=== PATIENT | female | born 1970 | race Caucasian/White ===

== ENCOUNTER 2017-06-03 09:44 | Emergency (ER) | payer SELFPAY ==
[~2017-06-03] VITALS: Ht 157.5 cm; Wt 63.5 kg
[~2017-06-03 09:44] MED LIST: CIPR500T4 PO; ESCI10TA PO; QUET100 PO; RISP.5 PO
[2017-06-03 09:45] VITALS: BP 117/93; PULSE 108; RESP 15; TEMP 98; O2SAT 100
--- NOTE | 2017-06-03 10:36 | PD ---
HPI Chief Complaint: Psychiatric Symptoms Time Seen by Provider: 10:06 Travel History International Travel<30 days: No Contact w/Intl Traveler<30days: No Traveled to known affect area: No History of Present Illness HPI Patient is a 46-year-old female who comes in because she would like to see psychiatry. She says she has been hearing voices and they're getting louder. She says the voices are derogatory mean. She denies any suicidal or homicidal ideation. She denies any medical complaints at this time. She is not having any pain, shortness of breath, fevers, nausea or vomiting. She denies drug or alcohol use. She was here a year ago for the same thing and was put on medications, however she has stopped taking them because she felt they were not helping. [facility] Past Medical History Anxiety: Yes Depression: Yes Cancer: No Cardiovascular Problems: No (Patient denied, but reported history of ER visits as described below) Diabetes: No Diminished Hearing: No Endocrine: No Genitourinary: No Headaches: No Immune Disorder: No Musculoskeletal: No Neurologic: No Reproductive: No Respiratory: No Seizures: No ?: Not LMP: 05/09/17 Menopausal: Yes : 2 Para: 1 : 1 Social History Alcohol Use: No Tobacco Use: No Allergies-Medications (Allergen,Severity, Reaction): Coded Allergies: metronidazole (Unverified Allergy, Severe, 06/03/17) Reported Meds & Prescriptions Reported Meds & Active Scripts Active Reported Risperdal (Risperidone) 0.5 Mg Tab 0.5 Mg PO DAILY Seroquel (Quetiapine Fumarate) 50 Mg Tab 150 Mg PO HS Escitalopram (Escitalopram Oxalate) 10 Mg Tab 10 Mg PO DAILY Review of Systems Except as stated in HPI: all other systems reviewed are Neg General / Constitutional: No: Fever, Chills Eyes: No: Blurred Vision HENT: No: Headaches, Lightheadedness Cardiovascular: No: Chest Pain or Discomfort Respiratory: No: Shortness of Breath Gastrointestinal: No: Nausea, Vomiting Genitourinary: No: Dysuria Musculoskeletal: No: Edema, Pain Skin: No Rash, No Itching, No Change in Pigmentation Neurologic: No: Weakness, Dizziness Psychiatric: No: Suicidal Ideations, Homicidal Ideation Physical Exam Narrative GENERAL: Awake and alert, in no acute distress. SKIN: Focused skin assessment warm/dry. HEAD: Atraumatic. Normocephalic. EYES: Pupils equal and round. No scleral icterus. ENT: Mucous membranes pink and moist. NECK: Trachea midline. No JVD. CARDIOVASCULAR: Regular rate and rhythm. No murmur appreciated. RESPIRATORY: No accessory muscle use. Clear to auscultation. Breath sounds equal bilaterally. GASTROINTESTINAL: Abdomen soft, non-tender, nondistended. MUSCULOSKELETAL: No obvious deformities. No clubbing. No cyanosis. No edema. NEUROLOGICAL: Awake and alert. No obvious cranial nerve deficits. Motor grossly within normal limits. Normal speech. PSYCHIATRIC: Appropriate mood and affect; insight and judgment normal. Data Data Last Documented VS Vital Signs Date Time Temp Pulse Resp B/P Pulse Ox O2 Delivery O2 Flow Rate FiO2 06/03/17 14:42 97.9 88 18 108/76 100 Room Air Orders Complete Blood Count With Diff (06/03/17 10:10) Comprehensive Metabolic Panel (06/03/17 10:10) Ed Urine Pregnancytest Poc (06/03/17 10:10) Psych Screen (06/03/17 10:10) Drug Screen, Random Urine (06/03/17 10:10) Alcohol (Ethanol) (06/03/17 10:10) Diet Regular Basic (06/03/17 Lunch) Labs Laboratory Tests Test 06/03/17 10:35 White Blood Count 9.6 TH/MM3 Red Blood Count 4.26 MIL/MM3 Hemoglobin 13.5 GM/DL Hematocrit 39.3 % Mean Corpuscular Volume 92.3 FL Mean Corpuscular Hemoglobin 31.7 PG Mean Corpuscular Hemoglobin 34.3 % Concent Red Cell Distribution Width 14.0 % Platelet Count 205 TH/MM3 Mean Platelet Volume 8.2 FL Neutrophils (%) (Auto) 72.2 % Lymphocytes (%) (Auto) 19.9 % Monocytes (%) (Auto) 6.9 % Eosinophils (%) (Auto) 0.3 % Basophils (%) (Auto) 0.7 % Neutrophils # (Auto) 7.0 TH/MM3 Lymphocytes # (Auto) 1.9 TH/MM3 Monocytes # (Auto) 0.7 TH/MM3 Eosinophils # (Auto) 0.0 TH/MM3 Basophils # (Auto) 0.1 TH/MM3 CBC Comment DIFF FINAL Differential Comment Sodium Level 136 MEQ/L Potassium Level 3.5 MEQ/L Chloride Level 102 MEQ/L Carbon Dioxide Level 26.6 MEQ/L Anion Gap 7 MEQ/L Blood Urea Nitrogen 7 MG/DL Creatinine 0.69 MG/DL Estimat Glomerular Filtration 91 ML/MIN Rate Random Glucose 83 MG/DL Calcium Level 9.2 MG/DL Total Bilirubin 0.4 MG/DL Aspartate Amino Transf 11 U/L (AST/SGOT) Alanine Aminotransferase 14 U/L (ALT/SGPT) Alkaline Phosphatase 58 U/L Total Protein 7.1 GM/DL Albumin 3.8 GM/DL Urine Opiates Screen NEG Urine Barbiturates Screen NEG Urine Amphetamines Screen NEG Urine Benzodiazepines Screen NEG Urine Cocaine Screen NEG Urine Cannabinoids Screen NEG Ethyl Alcohol Level LESS THAN 3 MG/DL MDM Medical Decision Making Medical Screen Exam Complete: Yes Emergency Medical Condition: Yes Medical Record Reviewed: Yes Differential Diagnosis Psychosis versus intoxication versus depression Narrative Course Patient is a 46-year-old female comes in because she would like to see psychiatry. She has no medical complaints at this time. Labs sent show no acute abnormalities. Patient will be medically cleared for psychiatric evaluation. Disposition per psychiatry. 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
[2017-06-03] MEDS ORDERED: SERO50TA PO (10:55)
[2017-06-03] MEDS ORDERED: ESCI10TA PO (10:55)
[2017-06-03] MEDS ORDERED: RISP0.5T20 PO (10:55)
[2017-06-03 11:07] LABS: BASOPHIL # 0.1 TH/MM3 (0-0.2); BASOPHIL % 0.7 % (0.0-2.0); EOSINOPHIL % 0.3 % (0.0-4.0); HEMATOCRIT 39.3 % (35.0-46.0); HEMO FLAGS DIFF FINAL; LYMPH % 19.9 % (9.0-44.0); LYMPHOCYTE # 1.9 TH/MM3 (1.0-4.8); MEAN CELL VOLUME 92.3 FL (80.0-100.0); MEAN CORPUSCULAR HEMOGLOBIN 31.7 PG (27.0-34.0); MEAN CORPUSCULAR HGB CONC 34.3 % (32.0-36.0); MONO % 6.9 % (0.0-8.0); NEUT % 72.2 % (16.0-70.0); PLATELET COUNT 205 TH/MM3 (150-450); RED BLOOD COUNT 4.26 MIL/MM3 (4.00-5.30); WHITE BLOOD COUNT 9.6 TH/MM3 (4.0-11.0)
[2017-06-03 11:36] LABS: ALT (GPT) 14 U/L (10-53); ANION GAP 7 MEQ/L (5-15); AST (GOT) 11 U/L (15-37); BICARBONATE 26.6 MEQ/L (21.0-32.0); BLOOD UREA NITROGEN 7 MG/DL (7-18); CHLORIDE 102 MEQ/L (98-107); GLOMERULAR FILTRATION RATE 91 ML/MIN (>89); POTASSIUM 3.5 MEQ/L (3.5-5.1); SODIUM (NA) 136 MEQ/L (136-145)
[2017-06-03 11:38] LABS: ALKALINE PHOSPHATASE 58 U/L (45-117); TOTAL BILIRUBIN ADULT 0.4 MG/DL (0.2-1.0)
[2017-06-03 11:47] LABS: ALCOHOL LESS THAN 3 MG/DL (0-5)
[2017-06-03 14:42] VITALS: BP 108/76; PULSE 88; RESP 18; TEMP 97.9; O2SAT 100
--- NOTE | 2017-06-03 19:29 | PD ---
History of Present Illness Chief Complaint: Psychiatric Symptoms Time Seen by Provider: 17:50 Travel History International Travel<30 Days: No Contact w/Intl Traveler<30days: No Known affected area: No Legal Status Legal Status: Voluntary History of Present Illness: History of Present Illness Patient is a 46-year-old female with history of brief psychotic disorder , hospitalized x 1 in 2016, who comes in because she would like to see psychiatry. Reports increase in auditory hallucinations which are mean and derogatory in nature She says she has been hearing voices and they're getting louder. She denies any suicidal or homicidal ideation. After being here in [facility] she called her daughter and then requested to be discharged and that she will follow up with [facility]. She does not want to go to [facility] because ' they gave me too much medication and I didn't like that". At this time she is not hearing any voices. No suicidal or homicidal ideation,intent or plan and does not appear internally preoccupied. PFSH Past Medical History Anxiety: Yes Depression: Yes Cancer: No Diabetes: No Diminished Hearing: No Endocrine: No Genitourinary: No Headaches: No Immune Disorder: No Musculoskeletal: No Neurologic: No Psychiatric: Yes Reproductive: No Respiratory: No Immunizations Current: Yes Schizophrenia: Yes Seizures: No Tetanus Vaccination: > 5 Years Influenza Vaccination: No ?: Not LMP: 05/09/17 Menopausal: Yes : 2 Para: 1 : 1 Past Surgical History Surgical History: No Previous Surgery Other Surgery: No Psychiatric History Psychiatric History Hx Psychiatric Treatment: 05/11/16 [facility] FOR AUDITORY HALLUCINATIONS AND SUICIDAL IDEATIONS STOPPED TAKING MEDICATION NOV 2016 History of Inpatient Treatment: Yes Social History Hx Alcohol Use: Yes (Occ) Hx Tobacco Use: Yes (1/2 ppd ) Hx of Substance Use Treatment: No Family Psychiatric History Negative Allergies-Medications (Allergen,Severity, Reaction): Coded Allergies: metronidazole (Unverified Allergy, Severe, 06/03/17) Reported Meds & Prescriptions Reported Meds & Active Scripts Active Reported Risperdal (Risperidone) 0.5 Mg Tab 0.5 Mg PO DAILY Seroquel (Quetiapine Fumarate) 50 Mg Tab 150 Mg PO HS Escitalopram (Escitalopram Oxalate) 10 Mg Tab 10 Mg PO DAILY Review of Systems Except as stated in HPI: all other systems reviewed are Neg Exam Alert: Yes Chandler: Person (ox4) Mood: Calm Affect: Appropriate Speech: Clear, Logical Eye Contact: Normal Memory Intact: Comment (Not impaired) Hallucinations: Auditory, Other Delusions: No Suicidal: Ideation (negative) Homicidal: Ideation (Negative) Insight/Judgement Fair. Fair. MDM Medical Decision Making Medical Record Reviewed: Yes Assessment/Plan Patient is a 46-year-old female with history of brief psychotic disorder , hospitalized x 1 in 2016, who comes in because she would like to see psychiatry. Reports increase in auditory hallucinations which are mean and derogatory in nature She says she has been hearing voices and they're getting louder. At this time she is denying any suicidal or homicidal. She is requesting discharge an plans to follow up with [facility] Orders Complete Blood Count With Diff (06/03/17 10:10) Comprehensive Metabolic Panel (06/03/17 10:10) Ed Urine Pregnancytest Poc (06/03/17 10:10) Psych Screen (06/03/17 10:10) Drug Screen, Random Urine (06/03/17 10:10) Alcohol (Ethanol) (06/03/17 10:10) Diet Regular Basic (06/03/17 Lunch) Results Vital Signs Date Time Temp Pulse Resp B/P Pulse Ox O2 Delivery O2 Flow Rate FiO2 06/03/17 14:42 97.9 88 18 108/76 100 Room Air 06/03/17 09:45 98.0 108 15 117/93 100 Laboratory Tests Test 06/03/17 10:35 White Blood Count 9.6 Red Blood Count 4.26 Hemoglobin 13.5 Hematocrit 39.3 Mean Corpuscular Volume 92.3 Mean Corpuscular Hemoglobin 31.7 Mean Corpuscular Hemoglobin 34.3 Concent Red Cell Distribution Width 14.0 Platelet Count 205 Mean Platelet Volume 8.2 Neutrophils (%) (Auto) 72.2 Lymphocytes (%) (Auto) 19.9 Monocytes (%) (Auto) 6.9 Eosinophils (%) (Auto) 0.3 Basophils (%) (Auto) 0.7 Neutrophils # (Auto) 7.0 Lymphocytes # (Auto) 1.9 Monocytes # (Auto) 0.7 Eosinophils # (Auto) 0.0 Basophils # (Auto) 0.1 CBC Comment DIFF FINAL Differential Comment Sodium Level 136 Potassium Level 3.5 Chloride Level 102 Carbon Dioxide Level 26.6 Anion Gap 7 Blood Urea Nitrogen 7 Creatinine 0.69 Estimat Glomerular Filtration 91 Rate Random Glucose 83 Calcium Level 9.2 Total Bilirubin 0.4 Aspartate Amino Transf 11 (AST/SGOT) Alanine Aminotransferase 14 (ALT/SGPT) Alkaline Phosphatase 58 Total Protein 7.1 Albumin 3.8 Urine Opiates Screen NEG Urine Barbiturates Screen NEG Urine Amphetamines Screen NEG Urine Benzodiazepines Screen NEG Urine Cocaine Screen NEG Urine Cannabinoids Screen NEG Ethyl Alcohol Level LESS THAN 3 Diagnosis Primary Impression: Auditory hallucination Additional Impressions: Post-traumatic stress disorder, chronic Psychotic disorder Psychiatrically Cleared: Yes Departure Forms: Tests/Procedures Patient Instructions: General Instructions, Post Traumatic Stress Disorder (ED) , Hallucinations (ED) Additional Instructions: FOLLOW UP WITH [facility] FOR MEDICATION MANAGEMENT PER REQUEST OF PATIENT TO SEEK TREATMENT AN OUTPATIENT. Med/ Other Pt Specific Info: No Change to Meds Disposition: 01 DISCHARGE HOME Condition: Stable Problem Qualifiers Additional Impressions: Psychotic disorder Qualified Code: F23 - Brief psychotic disorder Marilyn Mcnair Jun 03, 2017 19:29
== END 2017-06-03 18:07 | disposition home or self-care (01) ==
LOC: NEPD 09:44 → NEPJ 18:07
DX: F33.3 Major depressive disorder, recurrent, severe with psychotic symptoms (principal); R44.0 Auditory hallucinations; F43.12 Post-traumatic stress disorder, chronic; F23 Brief psychotic disorder; Z86.59 Personal history of other mental and behavioral disorders
CPT/HCPCS: 80053; 80307; 84703; 85025; 99283

== ENCOUNTER 2017-06-15 08:59 | Emergency (ER) | payer SELFPAY ==
[~2017-06-15] VITALS: Ht 157.5 cm; Wt 68.0 kg
[~2017-06-15 08:59] MED LIST changes: -CIPR500T4 PO; -QUET100 PO; -RISP.5 PO; +RISP0.5T20 PO; +SERO50TA PO
[2017-06-15 09:01] VITALS: BP 123/82; PULSE 100; RESP 20; TEMP 99; O2SAT 98
--- NOTE | 2017-06-15 11:05 | PD ---
HPI Chief Complaint: Psychiatric Symptoms Time Seen by Provider: 09:39 Travel History International Travel<30 days: No Contact w/Intl Traveler<30days: No Traveled to known affect area: No History of Present Illness HPI This Is a 46-year-old Woman with a History of Anxiety and Depression, As Well As Auditory Hallucinations Ongoing for the past Couple Years. She Is on Medications in the past. She Was Seen Emergency Department on a Month or so Ago for Auditory Hallucinations and Was Going to Follow up with Outpatient Psychiatry. She Has Not Done This. She Sitting in a Homeless Long Term Now and Is Here with Women from the Long Term. She Describes Increased Persecutory Auditory Hallucinations Including Screaming and Shrieking Which Is Keeping Her from Sleeping. She's Had Increased Anxiety and Depression Symptoms with This. She's Been under More Stress Recently. She's Been Homeless for Some Time and Has a Daughter. She Otherwise Has Been Feeling Generally Well. Review Systems Is Positive for Constipation, Decreased Appetite, and Difficulty Sleeping. History Past Medical History Narrative Medical Anxiety and depression Influenza Vaccination: No Menopausal: Yes : 2 Para: 1 Past Surgical History Surgical History: No Previous Surgery Social History Alcohol Use: Yes (Occ) Tobacco Use: Yes (1/2 ppd ; states hasnt used in a couple days) Allergies-Medications (Allergen,Severity, Reaction): Coded Allergies: metronidazole (Unverified Allergy, Severe, 06/15/17) Reported Meds & Prescriptions Reported Meds & Active Scripts Active Reported Risperdal (Risperidone) 0.5 Mg Tab 0.5 Mg PO DAILY Seroquel (Quetiapine Fumarate) 50 Mg Tab 150 Mg PO HS Escitalopram (Escitalopram Oxalate) 10 Mg Tab 10 Mg PO DAILY Review of Systems Except as stated in HPI: all other systems reviewed are Neg Physical Exam Narrative GENERAL: Generally well-appearing 38 year-old woman, no acute distress. SKIN: Focused skin assessment warm/dry. HEAD: Atraumatic. Normocephalic. EYES: Pupils equal and round. No scleral icterus. No injection or drainage. ENT: No nasal bleeding or discharge. Mucous membranes pink and moist. NECK: Trachea midline. No JVD. CARDIOVASCULAR: Regular rate and rhythm. No murmur appreciated. RESPIRATORY: No accessory muscle use. Clear to auscultation. Breath sounds equal bilaterally. GASTROINTESTINAL: Abdomen soft, non-tender, nondistended. Hepatic and splenic margins not palpable. MUSCULOSKELETAL: No obvious deformities. No clubbing. No cyanosis. No edema. NEUROLOGICAL: Awake and alert. No obvious cranial nerve deficits. Motor grossly within normal limits. Normal speech. PSYCHIATRIC: Little bit sad but conversant. Normal emotional range. Not obviously responding to internal stimuli. Does appear a little bit anxious and worried. Data Data Last Documented VS Vital Signs Date Time Temp Pulse Resp B/P (MAP) Pulse Ox O2 Delivery O2 Flow Rate FiO2 06/15/17 09:01 99.0 100 20 123/82 (96) 98 Room Air Orders Orders Psych Screen (06/15/17 09:56) Complete Blood Count With Diff (06/15/17 10:50) Comprehensive Metabolic Panel (06/15/17 10:50) Drug Screen, Random Urine (06/15/17 10:50) MDM Medical Decision Making Medical Screen Exam Complete: Yes Emergency Medical Condition: Yes Differential Diagnosis Anxiety and depression, psychotic disorder, stress reaction, other Narrative Course Medical decision making 46-year-old woman with increasing auditory hallucinations of unclear etiology. No clear history of schizophrenia but symptoms been ongoing for couple years. She looks well. Increased anxiety and depression. Explicitly denies SI or HI. Patient is medically clear for psychiatric evaluation. Mental health screening discussed with the patient. Psychiatric screen ordered. Javier Arce MD Jun 15, 2017 11:05
[2017-06-15 11:09] LABS: AUTOMATED NEUTROPHIL # 6.2 TH/MM3 (1.8-7.7); BASOPHIL # 0.1 TH/MM3 (0-0.2); BASOPHIL % 0.7 % (0.0-2.0); EOSINOPHIL % 0.5 % (0.0-4.0); HEMATOCRIT 41.7 % (35.0-46.0); HEMO FLAGS DIFF FINAL; LYMPH % 21.6 % (9.0-44.0); LYMPHOCYTE # 1.9 TH/MM3 (1.0-4.8); MEAN CELL VOLUME 92.9 FL (80.0-100.0); MEAN CORPUSCULAR HEMOGLOBIN 31.3 PG (27.0-34.0); MEAN CORPUSCULAR HGB CONC 33.7 % (32.0-36.0); NEUT % 70.2 % (16.0-70.0); PLATELET COUNT 229 TH/MM3 (150-450); RED BLOOD COUNT 4.48 MIL/MM3 (4.00-5.30); RED CELL DISTRIBUTION WIDTH 14.1 % (11.6-17.2); WHITE BLOOD COUNT 8.8 TH/MM3 (4.0-11.0)
[2017-06-15 11:24] LABS: ALT (GPT) 16 U/L (10-53); ANION GAP 10 MEQ/L (5-15); AST (GOT) 13 U/L (15-37); BICARBONATE 24.1 MEQ/L (21.0-32.0); BLOOD UREA NITROGEN 6 MG/DL (7-18); CHLORIDE 103 MEQ/L (98-107); GLOMERULAR FILTRATION RATE 81 ML/MIN (>89); POTASSIUM 3.5 MEQ/L (3.5-5.1); SODIUM (NA) 137 MEQ/L (136-145)
[2017-06-15 11:26] LABS: ALKALINE PHOSPHATASE 63 U/L (45-117); TOTAL BILIRUBIN ADULT 0.4 MG/DL (0.2-1.0)
[2017-06-15 16:22] VITALS: BP 123/82; PULSE 86; RESP 18; O2SAT 99
[2017-06-15 16:41] VITALS: BP 123/82; PULSE 86; RESP 18; O2SAT 99
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
--- NOTE | 2017-06-15 17:09 | PD ---
Physical Exam Date Seen by Provider: Jun 15, 2017 Time Seen by Provider: 17:07 Narrative This patient came voluntarily to be seen for depression. She was seen by the previous ER physician. As per his note there was no suicidal ideation or homicidal ideation verbalized when she initially came in. Please refer to his notes for further details. Patient was medically cleared and sent to [facility] for psych screen. The psych screen has been done. Please refer to Marilyn HILLIARD's note regarding the psych screen and clearance. Patient will be discharged home. Data Data Last Documented VS Vital Signs Date Time Temp Pulse Resp B/P (MAP) Pulse Ox O2 Delivery O2 Flow Rate FiO2 06/15/17 17:30 06/15/17 16:41 86 18 99 Room Air 06/15/17 09:01 99.0 Orders Orders Psych Screen (06/15/17 09:56) Complete Blood Count With Diff (06/15/17 10:50) Comprehensive Metabolic Panel (06/15/17 10:50) Drug Screen, Random Urine (06/15/17 10:50) Labs Laboratory Tests Test 06/15/17 10:30 06/15/17 10:35 Urine Opiates Screen NEG Urine Barbiturates Screen NEG Urine Amphetamines Screen NEG Urine Benzodiazepines Screen NEG Urine Cocaine Screen NEG Urine Cannabinoids Screen NEG White Blood Count 8.8 TH/MM3 Red Blood Count 4.48 MIL/MM3 Hemoglobin 14.1 GM/DL Hematocrit 41.7 % Mean Corpuscular Volume 92.9 FL Mean Corpuscular Hemoglobin 31.3 PG Mean Corpuscular Hemoglobin Concent 33.7 % Red Cell Distribution Width 14.1 % Platelet Count 229 TH/MM3 Mean Platelet Volume 9.2 FL Neutrophils (%) (Auto) 70.2 % Lymphocytes (%) (Auto) 21.6 % Monocytes (%) (Auto) 7.0 % Eosinophils (%) (Auto) 0.5 % Basophils (%) (Auto) 0.7 % Neutrophils # (Auto) 6.2 TH/MM3 Lymphocytes # (Auto) 1.9 TH/MM3 Monocytes # (Auto) 0.6 TH/MM3 Eosinophils # (Auto) 0.0 TH/MM3 Basophils # (Auto) 0.1 TH/MM3 CBC Comment DIFF FINAL Differential Comment Blood Urea Nitrogen 6 MG/DL Creatinine 0.76 MG/DL Random Glucose 82 MG/DL Total Protein 8.0 GM/DL Albumin 4.2 GM/DL Calcium Level 9.0 MG/DL Alkaline Phosphatase 63 U/L Aspartate Amino Transf (AST/SGOT) 13 U/L Alanine Aminotransferase (ALT/SGPT) 16 U/L Total Bilirubin 0.4 MG/DL Sodium Level 137 MEQ/L Potassium Level 3.5 MEQ/L Chloride Level 103 MEQ/L Carbon Dioxide Level 24.1 MEQ/L Anion Gap 10 MEQ/L Estimat Glomerular Filtration Rate 81 ML/MIN MDM Supervised Visit with VIJAYA: No Diagnosis Primary Impression: Post-traumatic stress disorder, chronic Patient Instructions: General Instructions Departure Forms: Tests/Procedures Additional Instruction: Please return to ER if the condition worsens or any other new concerns. Disposition: 01 DISCHARGE HOME Condition: Stable Alfreda Goldstein MD Jun 15, 2017 17:09
== END 2017-06-15 18:43 | disposition home or self-care (01) ==
LOC: NEPD 08:59 → NEPJ 18:43
DX: F43.10 Post-traumatic stress disorder, unspecified (principal); F41.9 Anxiety disorder, unspecified; F20.9 Schizophrenia, unspecified; F17.200 Nicotine dependence, unspecified, uncomplicated; Z79.899 Other long term (current) drug therapy
CPT/HCPCS: 80053; 80307; 85025; 99283